=== PATIENT | male | born 1940 | race Caucasian/White ===

== ENCOUNTER 2019-07-24 09:23 | Inpatient (IN) | payer MEDICARE, OTHER ==
[2019-07-24 11:57] LABS: ABSOLUTE LYMPHOCYTES (AUTO) 0.6 10^3/uL (0.5-4.7); ABSOLUTE MONOCYTES (AUTO) 0.5 10^3/uL (0.1-1.4); ABSOLUTE NEUT (AUTO) 7.2 10^3/uL (1.7-8.2); BASOPHILS % (AUTO) 0.5 % (0-2); EOSINOPHILS % (AUTO) 0.6 % (0-6); HEMATOCRIT 44.1 % (37.9-51.0); LYMPHOCYTES % (AUTO) 7.2 % (13-45); MEAN CORPUSCULAR HGB CONC 33.9 g/dL (32.0-36.0); MEAN CORPUSCULAR VOLUME 91 fl (80-97); PLATELET COUNT 148 10^3/uL (150-450); RED BLOOD COUNT 4.83 10^6/uL (4.35-5.55); RED CELL DISTRIBUTION WIDTH 14.2 % (11.5-14.0); SEGMENTED NEUTROPHILS % (AUTO) 85.7 % (42-78); TOTAL CELLS COUNTED % (AUTO) 100 %; WHITE BLOOD COUNT 8.4 10^3/uL (4.0-10.5)
[2019-07-24 12:01] LABS: ALBUMIN 3.7 g/dL (3.5-5.0); ALKALINE PHOSPHATASE 81 U/L (38-126); ANION GAP 11 (5-19); ASPARTATE AMINO TRANSFERASE 20 U/L (17-59); BILIRUBIN,DIRECT 0.2 mg/dL (0.0-0.4); BILIRUBIN,TOTAL 1.1 mg/dL (0.2-1.3); BLOOD UREA NITROGEN 17 mg/dL (7-20); CALCIUM 9.3 mg/dL (8.4-10.2); CARBON DIOXIDE 26 mmol/L (22-30); CHLORIDE 105 mmol/L (98-107); GLUCOSE 99 mg/dL (75-110); POTASSIUM 3.4 mmol/L (3.6-5.0)
[2019-07-24] MEDS ORDERED: NORMAL SALINE IV ONE (12:09)
[2019-07-24] MEDS ORDERED: LEVOFLOXACIN 750 MG/D5W RTU 750 MG/150 ML RTUPB IV ONE (12:09)
[2019-07-24 12:13] LABS: NT PRO BNP 257 pg/mL (<450)
--- NOTE | 2019-07-24 12:14 | ER Document Report ---
Entered by ZACH HARRISON SCRIBE 07/24/19 1119 Acting as scribe for:SEGUNDO GARCIA IV, MD ED Respiratory Problem - General Chief Complaint: Productive Cough Stated Complaint: SHORTNESS OF BREATH Mode of Arrival: Medic Information source: Patient, Emergency Med Personnel Notes: This 79 year old male patient presents to the emergency department today with complaints of a cough beginning yesterday along with associated shortness of breath. Patient states that the cough became more severe with large amounts of sputum production this morning at around 5:00am. EMS reported a room air oxygen saturation of 84% with a respiratory rate of 34 on arrival. Patient states that his cough was mostly dry and non-productive yesterday but since early this morning he states he has coughed up approximately 8 oz. of brown colored sputum with blood streaks. Patient mentions that he has been wearing a "COPD vest" that delivers high frequency chest wall oscillation for the last x3 months and he does not know if that is why he has seen blood streaks in his sputum. Patient denies fevers. - Related Data Allergies/Adverse Reactions: Penicillins Allergy (Verified 07/24/19 10:25) Home Medications: losartin 50 mg daily. crestor [address] 20 mg daily. zocor 40 mg daily. singulair 10 mg. mobic tabs 7.5 mg. sildenafil cotrate 50 mg. B12. ASA 81 mg. docusate sodium 100 mg. claritin Past Medical History - General Information source: Patient - Social History Smoking Status: Former Smoker Cigarette use (# per day): No Chew tobacco use (# tins/day): No Frequency of alcohol use: Rare Drug Abuse: None Occupation: retired Lives with: Spouse/Significant other Family History: Reviewed & Not Pertinent Patient has suicidal ideation: No Patient has homicidal ideation: No - Past Medical History Cardiac Medical History: Reports: Hx Hypercholesterolemia, Hx Hypertension Pulmonary Medical History: Reports: Hx COPD, Hx Pneumonia GI Medical History: Reports: Hx Gastroesophageal Reflux Disease Review of Systems - Review of Systems Constitutional: denies: Fever EENT: No symptoms reported Cardiovascular: No symptoms reported Respiratory: See HPI, Cough, Hemoptysis, Short of breath, Sputum Gastrointestinal: No symptoms reported Genitourinary: No symptoms reported Male Genitourinary: No symptoms reported Musculoskeletal: No symptoms reported Skin: No symptoms reported Hematologic/Lymphatic: No symptoms reported Neurological/Psychological: No symptoms reported -: Yes All other systems reviewed and negative Physical Exam - Vital signs Vitals: Temp Resp BP Pulse Ox 98.1 F 23 H 111/68 94 07/24/19 09:40 07/24/19 09:40 07/24/19 09:40 07/24/19 09:40 - Notes Notes: Physical Exam: General: Alert, appears well. HEENT: Normocephalic. Atraumatic. PERRL. Extraocular movements intact. Oropharynx clear. Neck: Supple. Non-tender. Respiratory: Mild respiratory distress, on 3L via nasal cannula, not on O2 at baseline. Diminished breath sounds bilaterally. Cardiovascular: Regular rate and rhythm. Abdominal: Normal Inspection. Non-tender. No distension. Normal Bowel Sounds. Back: No gross abnormalities. Extremities: Moves all four extremities. Upper extremities: Normal inspection. Normal ROM. Lower extremities: Normal inspection. No edema. Normal ROM. Neurological: Normal cognition. AAOx4. Normal speech. Psychological: Normal affect. Normal Mood. Skin: Warm. Dry. Normal color. Course - Vital Signs Vital signs: Temp Pulse Resp BP Pulse Ox 98.1 F 19 101/66 94 07/24/19 09:40 07/24/19 12:01 07/24/19 12:01 07/24/19 12:09 - Laboratory Result Diagrams: 07/24/19 09:45 07/24/19 09:45 Laboratory results interpreted by me: 07/24/19 07/24/19 07/24/19 09:45 09:45 12:50 RDW 14.2 H Plt Count 148 L Lymph % (Auto) 7.2 L Seg Neutrophils % 85.7 H Carbonic Acid 1.04 L ABG pH 7.46 H ABG pCO2 34.6 L ABG pO2 58.4 L ABG O2 Saturation 91.9 L Potassium 3.4 L - EKG Interpretation by Me Additional EKG results interpreted by me: 07/24/19 16:01 EKG performed on 07/24/2019 at 1219 hrs was interpreted by this MD. Findings: Normal sinus rhythm, rate 81, normal axis, P waves preceding QRS complexes, QRS complexes appear narrow, there are no patterns of ST segment elevation or depression to suggest acute myocardial infarction or ischemia. Impression normal sinus rhythm with nonspecific ST segments. - Consults dr. arias grover Time consulted: 15:58 Reason for consultation: 07/24/19 15:59 COPD EXACERBATION, PNEUMONIA Consulted provider: will come to ER Discharge - Discharge Clinical Impression: Bilateral pneumonia, COPD exacerbation Condition: Good Disposition: ADMITTED OBSERVATION Admitting Provider: Ariel (Hospitalist) Unit Admitted: Telemetry I personally performed the services described in the documentation, reviewed and edited the documentation which was dictated to the scribe in my presence, and it accurately records my words and actions.
[2019-07-24 12:17] LABS: TROPONIN I < 0.012 ng/mL
--- NOTE | 2019-07-24 12:17 | RADIOLOGY REPORT (SQ) ---
EXAM DESCRIPTION: CHEST 2 VIEWS COMPLETED DATE/TIME: 07/24/2019 11:59 am REASON FOR STUDY: cough, blood streaked sputum COMPARISON: None. EXAM PARAMETERS: NUMBER OF VIEWS: two views TECHNIQUE: Digital Frontal and Lateral radiographic views of the chest acquired. RADIATION DOSE: NA LIMITATIONS: none FINDINGS: LUNGS AND PLEURA: Heterogeneous opacity of the lateral right upper lobe and retrocardiac l eft lung base. Small pleural effusions. MEDIASTINUM AND HILAR STRUCTURES: No masses or contour abnormalities. HEART AND VASCULAR STRUCTURES: Cardiomegaly. BONES: No acute findings. HARDWARE: None in the chest. OTHER: No other significant finding. IMPRESSION: 1. Heterogeneous opacity of the lateral right upper lobe and retrocardiac left lung base , concerning for infection. Small pleural effusions. Recommend follow-up radiographs in 6 to 8 week s to ensure complete resolution. 2. Cardiomegaly. TECHNICAL DOCUMENTATION: JOB ID: [id number]- All Rights Reserved Reading location - IP/workstation name: [email or web address]
[2019-07-24 12:33] LABS: INTERNATIONAL RATION (INR) 1.04; PROTHROMBIN TIME 13.6 SEC (11.4-15.4)
[2019-07-24 14:33] LABS: ARTERIAL BLOOD BASE EXCESS 0.7 mmol/L; ARTERIAL BLOOD FIO2 ROOM AIR; ARTERIAL BLOOD H2CO3 1.04 mmol/L (1.05-1.35); ARTERIAL BLOOD O2 SATURATION 91.9 % (94-98); ARTERIAL BLOOD PCO2 34.6 mmHg (35-45); ARTERIAL BLOOD PH 7.46 (7.35-7.45); ARTERIAL BLOOD PO2 58.4 mmHg (80-100); ARTERIAL BLOOD TOTAL CO2 25.1 mmol/L (23-27)
[2019-07-24] MEDS ORDERED: ALBUTEROL SULFATE 0.083% NEB 2.5 MG/3 ML AMPUL NEB PRN (16:37)
[2019-07-24] MEDS ORDERED: MAGNESIUM HYDROXIDE SUSP 30 ML UDCUP PO PRN (16:59)
[2019-07-24] MEDS ORDERED: MAG HYDROX/AL HYDROX/SIMETH SUSP 30 ML UDCUP PO PRN (16:59)
--- NOTE | 2019-07-24 17:31 | PDOC H&P ---
History of Present Illness Admission Date/PCP: 07/24/19 16:49 Patient complains of: Productive cough with shortness of breath History of Present Illness: GABE CHILD is a 79 year old male with a history of hypertension, hyperlipidemia, chronic back pain and COPD. He states that at 5:00 this morning he began coughing. He denied fever or chills. He had 4-5 productive episodes with brown sputum and occasional red specks. For approximately 3 months now he has been wearing a percussion vest for his COPD. He is not on oxygen at home. He did complete a cardiopulmonary rehab program earlier in the fall. He did call EMS. They found him to be hypoxic requiring oxygen supplementation. Chest x-ray reveals infiltrates bilaterally. The patient was given antibiotics and nebulizer treatment and referred to the hospital service for admission Past Medical History Cardiac Medical History: Reports: Hyperlipidema, Hypertension Pulmonary Medical History: Reports: Chronic Obstructive Pulmonary Disease (COPD), Pneumonia EENT Medical History: Reports: Ears - Wears hearing aids Neurological Medical History: Denies: Hemorrhagic CVA, Ischemic CVA, Migraine Endocrine Medical History: Denies: Diabetes Mellitus Type 2, Hypothyroidism Renal/ Medical History: Denies: Chronic Kidney Disease Malignancy Medical History: Reports: None GI Medical History: Reports: Gastroesophageal Reflux Disease Denies: Cirrhosis, Diverticulitis Musculoskeltal Medical History: Reports: Arthritis, Other - Chronic back pain Skin Medical History: Denies: Eczema, Psoriasis Psychiatric Medical History: Denies: Alcohol Dependency, Depression, Substance Abuse, Tobacco Dependency Traumatic Medical History: Reports: None Hematology: Denies: Anemia, Bleeding Tendencies Infectious Medical History: Denies: Clostridium Difficile, Hepatitis B, Hepatitis C, HIV Past Surgical History Past Surgical History: Reports: Orthopedic Surgery - Right rotator cuff repair Social History Information Source: Patient Lives with: Spouse/Significant other Smoking Status: Former Smoker Electronic Cigarette use?: No Frequency of Alcohol Use: None Hx Recreational Drug Use: No Hx Prescription Drug Abuse: No - Advance Directive Resuscitation Status: Full Code Surrogate healthcare decision maker:: The patient does have a living will. His is the designated decision maker. He does not have a copy of the living will on file here at [facility]. Family History Family History: Arthritis, COPD, Malignancy Parental Family History Reviewed: Yes Children Family History Reviewed: Yes Sibling(s) Family History Reviewed.: Yes Medication/Allergy Allergies/Adverse Reactions: Penicillins Allergy (Verified 07/24/19 10:25) Review of Systems Constitutional: ABSENT: chills, fever(s), night sweats Eyes: ABSENT: visual disturbances Ears: PRESENT: hearing changes Nose, Mouth, and Throat: ABSENT: headache(s), mouth pain, sore throat Cardiovascular: ABSENT: chest pain, edema, palpitations Respiratory: PRESENT: cough, dyspnea, sputum. ABSENT: hemoptysis Gastrointestinal: ABSENT: abdominal pain, constipation, diarrhea, nausea, vomiting Genitourinary: PRESENT: nocturia Musculoskeletal: PRESENT: back pain. ABSENT: deformity, joint swelling Integumentary: ABSENT: erythema, pruritus, rash Neurological: ABSENT: abnormal gait, abnormal speech, confusion, memory loss Psychiatric: ABSENT: anxiety, depression, hallucinations Endocrine: ABSENT: cold intolerance, heat intolerance, polydipsia, polyphagia, polyuria Hematologic/Lymphatic: PRESENT: easy bruising - Occasionally. ABSENT: easy bleeding Physical Exam Vital Signs: Temp Pulse Resp BP Pulse Ox 98.1 F 24 H 123/71 95 07/24/19 09:40 07/24/19 16:01 07/24/19 14:01 07/24/19 16:01 Intake & Output 07/23/19 07/24/19 07/25/19 06:59 06:59 06:59 Intake Total 150 Balance 150 Weight 75.6 kg General appearance: PRESENT: cooperative, mild distress - Well-developed 79-year-old patient resting in bed. He has nasal cannula in place. He has a wet cough. He is in mild distress., well-developed, well-nourished. ABSENT: disheveled Head exam: PRESENT: atraumatic, normocephalic Eye exam: PRESENT: conjunctiva pink, EOMI. ABSENT: scleral icterus Ear exam: PRESENT: normal external ear exam. ABSENT: bleeding, drainage Mouth exam: PRESENT: dry mucosa, tongue midline Teeth exam: PRESENT: poor dentation Neck exam: PRESENT: full ROM. ABSENT: JVD, lymphadenopathy, tracheal deviation, tracheostomy Respiratory exam: PRESENT: rhonchi, symmetrical. ABSENT: prolonged expiratory phas, rales, tachypnea, wheezes Cardiovascular exam: PRESENT: RRR, +S1, +S2. ABSENT: diastolic murmur, systolic murmur Pulses: PRESENT: normal dorsalis pedis pul Vascular exam: ABSENT: pallor GI/Abdominal exam: PRESENT: normal bowel sounds, soft. ABSENT: distended, guarding, tenderness Rectal exam: PRESENT: deferred Gentrourinary exam: ABSENT: indwelling catheter Extremities exam: ABSENT: joint swelling, pedal edema Musculoskeletal exam: PRESENT: ambulatory, full ROM, normal inspection Neurological exam: PRESENT: alert, awake, oriented to person, oriented to place, oriented to time, oriented to situation, CN II-XII grossly intact Psychiatric exam: PRESENT: appropriate affect. ABSENT: agitated, anxious Focused psych exam: ABSENT: delusional, restlessness Skin exam: PRESENT: dry, normal color, warm. ABSENT: rash Results Laboratory Results: 07/24/19 09:45 07/24/19 09:45 07/24/19 07/24/19 07/24/19 09:45 09:45 09:45 WBC 8.4 RBC 4.83 Hgb 15.0 Hct 44.1 MCV 91 MCH 31.0 MCHC 33.9 RDW 14.2 H Plt Count 148 L Seg Neutrophils % 85.7 H Carbonic Acid HCO3/H2CO3 Ratio ABG pH ABG pCO2 ABG pO2 ABG HCO3 ABG O2 Saturation ABG Base Excess FiO2 Sodium 141.6 Potassium 3.4 L Chloride 105 Carbon Dioxide 26 Anion Gap 11 BUN 17 Creatinine 0.90 Est GFR ( Amer) > 60 Glucose 99 Lactic Acid 1.8 Calcium 9.3 Total Bilirubin 1.1 AST 20 Alkaline Phosphatase 81 Total Protein 7.0 Albumin 3.7 07/24/19 12:50 WBC RBC Hgb Hct MCV MCH MCHC RDW Plt Count Seg Neutrophils % Carbonic Acid 1.04 L HCO3/H2CO3 Ratio 23:1 ABG pH 7.46 H ABG pCO2 34.6 L ABG pO2 58.4 L ABG HCO3 24.0 ABG O2 Saturation 91.9 L ABG Base Excess 0.7 FiO2 ROOM AIR Sodium Potassium Chloride Carbon Dioxide Anion Gap BUN Creatinine Est GFR ( Amer) Glucose Lactic Acid Calcium Total Bilirubin AST Alkaline Phosphatase Total Protein Albumin 07/24/19 09:45 Troponin I < 0.012 NT-Pro-B Natriuret Pep 257 Impressions: Chest X-Ray 07/24/19 11:41 IMPRESSION: 1. Heterogeneous opacity of the lateral right upper lobe and retrocardiac left lung base, concerning for infection. Small pleural effusions. Recommend follow-up radiographs in 6 to 8 weeks to ensure complete resolution. 2. Cardiomegaly. Assessment and Plan - Diagnosis (1) Bilateral pneumonia Qualifiers: Pneumonia type: due to unspecified organism Lung location: unspecified part of lung Qualified Code(s): J18.9 - Pneumonia, unspecified organism Is this a current diagnosis for this admission?: Yes Plan: 07/24/2019-patient has bilateral infiltrates in the right upper lobe and left lower lobe. He has a cough productive of brown sputum with red specks. With his underlying COPD pneumococcus could certainly be present. Other atypical bacteria are possible. Since he has a productive cough I did order a sputum culture to try and isolate the organism. He will be placed on levofloxacin (penicillin allergy) as well as guaifenesin products. (2) Acute and chronic respiratory failure with hypoxia Is this a current diagnosis for this admission?: Yes Plan: 07/24/2019-the patient was hypoxic in the field and EMS applied supplemental oxygen. We will continue his oxygen supplementation with a goal of weaning him back to room air. After some intervention the patient was placed on room air for short time and an ABG was obtained. The patient had decreased PO2 and saturation of 91% at complete rest. Oxygen saturation has been fluctuating. We will supplement his oxygen with a goal of keeping his saturation between 90 and 94%. (3) COPD exacerbation Is this a current diagnosis for this admission?: Yes Plan: 07/24/2019-exacerbation of COPD secondary to pneumonia. Duo nebs every 6 hours with albuterol available every 3 hours as needed. Budesonide every 12 hours. He does have a percussion vest at home and I have ordered chest physiotherapy every 6 hours with respiratory therapy. No systemic steroids yet. (4) Gastroesophageal reflux Qualifiers: Esophagitis presence: without esophagitis Qualified Code(s): K21.9 - Gastro-esophageal reflux disease without esophagitis Is this a current diagnosis for this admission?: Yes Plan: 07/24/2019-the patient is on omeprazole at home. I will utilize Protonix 20 mg daily while hospitalized. (5) Hypertension Qualifiers: Hypertension type: essential hypertension Qualified Code(s): I10 - Essential (primary) hypertension Is this a current diagnosis for this admission?: Yes Plan: 07/24/2019-losartan is listed as 1 of his medications. I have ordered losartan 50 mg daily. We will monitor his blood pressure and I will confirm dosing when his medications are reconciled by pharmacy. (6) Hyperlipidemia Qualifiers: Hyperlipidemia type: unspecified Qualified Code(s): E78.5 - Hyperlipidemia, unspecified Is this a current diagnosis for this admission?: Yes Plan: 07/24/2019-he was recently changed from simvastatin to Crestor. I will subs titute atorvastatin during his hospitalization. (7) Chronic back pain Qualifiers: Back pain location: back pain in unspecified location Back pain laterality: midline Qualified Code(s): M54.9 - Dorsalgia, unspecified; G89.29 - Other chronic pain Is this a current diagnosis for this admission?: Yes Plan: 07/24/2019-the patient sees Dr. Saini at the pain management clinic. He has received multiple injections. I will continue his Mobic at this time. We will try and avoid narcotic analgesics. (8) Benign prostatic hyperplasia with nocturia Is this a current diagnosis for this admission?: Yes Plan: 07/24/2019-the patient reports that he was having 4-5 episodes of nocturia. He states that his doctor put him on a medicine and this improved. I have started tamsulosin and will continue this unless a different medication is indicated with the pharmacy medication reconciliation. - Plan Summary Summary: 07/24/2019-the patient will be admitted to the hospitalist service. Aggressive nebulizer treatments, oxygen supplementation and antibiotic therapy will be the mainstay of the treatment plan. We will continue to treat his comorbidities as well. - Time Time Spent with patient: 35 or more minutes Medications reviewed and adjusted accordingly: Yes Anticipated discharge: Home - Inpatient Certification Based on my medical assessment, after consideration of the patient's comorbidities, presenting symptoms, or acuity I expect that the services needed warrant INPATIENT care.: Yes I certify that my determination is in accordance with my understanding of Medicare's requirements for reasonable and necessary INPATIENT services [42 CFR 412.3e].: Yes Medical Necessity: Need For IV Fluids, Need for Nebulizer Therapy and Monitoring of Response, Need for IV Antibiotics Post Hospital Care: D/C Spare Fixer Documentation
[2019-07-24] MEDS ORDERED: POTASSIUM CHLORIDE 10 MEQ TABLET.ER PO ONE (17:49)
[2019-07-24] MEDS: TAMSULOSIN HCL 0.4 MG CAP.SR.24H PO SCH (19:51)
[2019-07-24] MEDS: DOCUSATE SODIUM 100 MG CAPSULE PO SCH (19:51)
--- NOTE | 2019-07-24 20:08 | EKG REPORT ---
SEVERITY:- NORMAL ECG - SINUS RHYTHM : Confirmed by: Nora Bautista MD 24-Jul-2019 20:07:02
[2019-07-24] MEDS: IPRATROPIUM/ALBUTEROL 0.5-2.5 MG/3 ML AMPUL NEB SCH (21:18)
[2019-07-24] MEDS: MONTELUKAST SODIUM 10 MG TABLET PO SCH (22:50)
[2019-07-24] MEDS: ATORVASTATIN CALCIUM 40 MG TABLET PO SCH (22:50)
[2019-07-24] MEDS: GUAIFENESIN 600 MG TABLET.SA PO SCH (22:50)
[2019-07-25] MEDS: IPRATROPIUM/ALBUTEROL 0.5-2.5 MG/3 ML AMPUL NEB SCH ×4 (02:36→20:11)
[2019-07-25] MEDS: NORMAL SALINE 1000 ML 1,000 ML IV PRN ×2 (05:55→17:51)
[2019-07-25] MEDS: PANTOPRAZOLE SODIUM 20 MG TABLET.DR PO SCH (05:55)
[2019-07-25 06:13] LABS: MEAN CORPUSCULAR VOLUME 91 fl (80-97)
[2019-07-25 06:20] LABS: ABSOLUTE EOSINOPHILS # (AUTO) 0.1 10^3/uL (0.0-0.6); ABSOLUTE LYMPHOCYTES (AUTO) 1.1 10^3/uL (0.5-4.7); ABSOLUTE MONOCYTES (AUTO) 0.7 10^3/uL (0.1-1.4); ABSOLUTE NEUT (AUTO) 9.3 10^3/uL (1.7-8.2); BASOPHILS % (AUTO) 0.4 % (0-2); EOSINOPHILS % (AUTO) 0.8 % (0-6); HEMATOCRIT 38.1 % (37.9-51.0); LYMPHOCYTES % (AUTO) 9.7 % (13-45); MEAN CORPUSCULAR HEMOGLOBIN 30.6 pg (27.0-33.4); MEAN CORPUSCULAR HGB CONC 33.6 g/dL (32.0-36.0); MONOCYTES % (AUTO) 6.4 % (3-13); PLATELET COUNT 132 10^3/uL (150-450); RED BLOOD COUNT 4.18 10^6/uL (4.35-5.55); RED CELL DISTRIBUTION WIDTH 14.5 % (11.5-14.0); SEGMENTED NEUTROPHILS % (AUTO) 82.7 % (42-78); TOTAL CELLS COUNTED % (AUTO) 100 %; WHITE BLOOD COUNT 11.3 10^3/uL (4.0-10.5)
[2019-07-25 06:21] LABS: HEMOGLOBIN 12.8 g/dL (13.5-17.0)
[2019-07-25 06:31] LABS: ANION GAP 8 (5-19); BLOOD UREA NITROGEN 16 mg/dL (7-20); CALCIUM 8.6 mg/dL (8.4-10.2); CARBON DIOXIDE 23 mmol/L (22-30); CHLORIDE 111 mmol/L (98-107); GLUCOSE 87 mg/dL (75-110)
[2019-07-25] MEDS: GUAIFENESIN 600 MG TABLET.SA PO SCH ×2 (10:03→21:06)
[2019-07-25] MEDS: LOSARTAN POTASSIUM 50 MG TABLET PO SCH (10:03)
[2019-07-25] MEDS: DOCUSATE SODIUM 100 MG CAPSULE PO SCH ×3 (10:03→17:46)
[2019-07-25] MEDS: LORATADINE 10 MG TABLET PO SCH (10:03)
[2019-07-25] MEDS: ASPIRIN 81 MG TABLET, ENT COATED PO SCH (10:03)
[2019-07-25] MEDS: MELOXICAM 7.5 MG TABLET PO SCH (10:04)
[2019-07-25] MEDS: ENOXAPARIN SODIUM INJ 40 MG/0.4 ML DISP.SYRIN SUBCUT SCH (10:04)
[2019-07-25] MEDS: GUAIFENESIN/D-METHORPHAN (200-20 MG) SYRUP 10 ML PO PRN (11:19)
--- NOTE | 2019-07-25 11:33 | PDOC PROGRESS REPORT ---
Subjective Progress Note for:: 07/25/19 Subjective:: Still with persistent productive cough. Now with dark color likely hemolyzed old blood. Breathing is somewhat improved per the patient's report. His reports that the patient feels cold all the time. Lastly, from the coughing he is beginning to get pain along the costal margins. Reason For Visit: PNEUOMONIA,ACUTE ON CHRONIC COPD,HYPERTENSION Physical Exam Vital Signs: Temp Pulse Resp BP Pulse Ox 98.5 F 69 16 115/59 L 97 07/25/19 08:28 07/25/19 08:28 07/25/19 08:28 07/25/19 08:28 07/25/19 09:19 Pulse Oximeter Continuous Start: 07/24/19 16:37 Freq: RTQ4 Status: Active Protocol: Document 07/25/19 09:19 NSM (Rec: 07/25/19 09:21 NSM [id number]) Additional RT Notes Other Rhonchi clears with cough Pulse Oximetry Assessment Oxygen Saturation (92-100) 97 Oxygen Flow Rate (L/min) 2 Oxygen Delivery Method Nasal Cannula Fraction of Inspired Oxygen (FIO2) 28 Equipment Usage Equipment in Use Continuous SpO2 Machine # [id number] Intake & Output 07/24/19 07/25/19 07/26/19 06:59 06:59 06:59 Intake Total 3552 Balance 3552 Weight 78.2 kg General appearance: PRESENT: cooperative, mild distress, well-developed Head exam: PRESENT: atraumatic, normocephalic Ear exam: PRESENT: normal external ear exam. ABSENT: bleeding, drainage Mouth exam: PRESENT: moist, neck supple, tongue midline Respiratory exam: PRESENT: rhonchi - Bilaterally, symmetrical, unlabored. ABSENT: prolonged expiratory phas, rales, tachypnea, wheezes Cardiovascular exam: PRESENT: RRR, +S1, +S2 GI/Abdominal exam: PRESENT: normal bowel sounds, soft. ABSENT: distended, tenderness Rectal exam: PRESENT: deferred Gentrourinary exam: ABSENT: indwelling catheter Extremities exam: ABSENT: pedal edema Musculoskeletal exam: PRESENT: full ROM. ABSENT: normal inspection Neurological exam: PRESENT: alert, awake, oriented to person, oriented to place, oriented to time, oriented to situation, CN II-XII grossly intact Psychiatric exam: PRESENT: appropriate affect. ABSENT: agitated, anxious Skin exam: PRESENT: dry, warm. ABSENT: rash Results Laboratory Results: 07/25/19 06:03 07/25/19 06:03 07/24/19 07/24/19 07/24/19 09:45 09:45 09:45 WBC 8.4 RBC 4.83 Hgb 15.0 Hct 44.1 MCV 91 MCH 31.0 MCHC 33.9 RDW 14.2 H Plt Count 148 L Seg Neutrophils % 85.7 H Carbonic Acid HCO3/H2CO3 Ratio ABG pH ABG pCO2 ABG pO2 ABG HCO3 ABG O2 Saturation ABG Base Excess FiO2 Sodium 141.6 Potassium 3.4 L Chloride 105 Carbon Dioxide 26 Anion Gap 11 BUN 17 Creatinine 0.90 Est GFR ( Amer) > 60 Glucose 99 Lactic Acid 1.8 Calcium 9.3 Total Bilirubin 1.1 AST 20 Alkaline Phosphatase 81 Total Protein 7.0 Albumin 3.7 07/24/19 07/25/19 07/25/19 12:50 06:03 06:03 WBC 11.3 H RBC 4.18 L Hgb 12.8 L D Hct 38.1 MCV 91 MCH 30.6 MCHC 33.6 RDW 14.5 H Plt Count 132 L Seg Neutrophils % 82.7 H Carbonic Acid 1.04 L HCO3/H2CO3 Ratio 23:1 ABG pH 7.46 H ABG pCO2 34.6 L ABG pO2 58.4 L ABG HCO3 24.0 ABG O2 Saturation 91.9 L ABG Base Excess 0.7 FiO2 ROOM AIR Sodium 142.3 Potassium 4.0 Chloride 111 H Carbon Dioxide 23 Anion Gap 8 BUN 16 Creatinine 0.84 Est GFR ( Amer) > 60 Glucose 87 Lactic Acid Calcium 8.6 Total Bilirubin AST Alkaline Phosphatase Total Protein Albumin 07/24/19 09:45 Troponin I < 0.012 NT-Pro-B Natriuret Pep 257 Impressions: Chest X-Ray 07/24/19 11:41 IMPRESSION: 1. Heterogeneous opacity of the lateral right upper lobe and retrocardiac left lung base, concerning for infection. Small pleural effusions. Recommend follow-up radiographs in 6 to 8 weeks to ensure complete resolution. 2. Cardiomegaly. Assessment and Plan - Diagnosis (1) Bilateral pneumonia Qualifiers: Pneumonia type: due to unspecified organism Lung location: unspecified part of lung Qualified Code(s): J18.9 - Pneumonia, unspecified organism Is this a current diagnosis for this admission?: Yes Plan: 07/24/2019-patient has bilateral infiltrates in the right upper lobe and left lower lobe. He has a cough productive of brown sputum with red specks. With his underlying COPD pneumococcus could certainly be present. Other atypical bacteria are possible. Since he has a productive cough I did order a sputum culture to try and isolate the organism. He will be placed on levofloxacin (penicillin allergy) as well as guaifenesin products. 07/25/2019-unfortunately despite the order, no sputum specimen was submitted for culture. At this point, now that the patient has received greater than 24 hours of antibiotic therapy, sputum culture would not be accurate. (2) Acute and chronic respiratory failure with hypoxia Is this a current diagnosis for this admission?: Yes Plan: 07/24/2019-the patient was hypoxic in the field and EMS applied supplemental oxygen. We will continue his oxygen supplementation with a goal of weaning him back to room air. After some intervention the patient was placed on room air for short time and an ABG was obtained. The patient had decreased PO2 and saturation of 91% at complete rest. Oxygen saturation has been fluctuating. We will supplement his oxygen with a goal of keeping his saturation between 90 and 94%. 07/25/2019-continue oxygen supplementation as required. Maintain saturation between 90 and 94%. Taper oxygen as tolerated. Continue current medication regimen. (3) COPD exacerbation Is this a current diagnosis for this admission?: Yes Plan: 07/24/2019-exacerbation of COPD secondary to pneumonia. Duo nebs every 6 hours with albuterol available every 3 hours as needed. Budesonide every 12 hours. He does have a percussion vest at home and I have ordered chest physiotherapy every 6 hours with respiratory therapy. No systemic steroids yet. 07/25/2019-continue inhaler regimen. Consider adding budesonide. Continue chest physiotherapy. (4) Gastroesophageal reflux Qualifiers: Esophagitis presence: without esophagitis Qualified Code(s): K21.9 - Gastro-esophageal reflux disease without esophagitis Is this a current diagnosis for this admission?: Yes Plan: 07/24/2019-the patient is on omeprazole at home. I will utilize Protonix 20 mg daily while hospitalized. 07/25/2019-continue Protonix (5) Hypertension Qualifiers: Hypertension type: essential hypertension Qualified Code(s): I10 - Esse ntial (primary) hypertension Is this a current diagnosis for this admission?: Yes Plan: 07/24/2019-losartan is listed as 1 of his medications. I have ordered losartan 50 mg daily. We will monitor his blood pressure and I will confirm dosing when his medications are reconciled by pharmacy. 07/25/2019-continue current regimen. (6) Hyperlipidemia Qualifiers: Hyperlipidemia type: unspecified Qualified Code(s): E78.5 - Hyperlipidemia, unspecified Is this a current diagnosis for this admission?: Yes Plan: 07/24/2019-he was recently changed from simvastatin to Crestor. I will substitute atorvastatin during his hospitalization. 07/25/2019-continue atorvastatin (7) Chronic back pain Qualifiers: Back pain location: back pain in unspecified location Back pain laterality: midline Qualified Code(s): M54.9 - Dorsalgia, unspecified; G89.29 - Other chronic pain Is this a current diagnosis for this admission?: Yes Plan: 07/24/2019-the patient sees Dr. Saini at the pain management clinic. He has received multiple injections. I will continue his Mobic at this time. We will try and avoid narcotic analgesics. 07/25/2019-continue anti-inflammatory medication (8) Benign prostatic hyperplasia with nocturia Is this a current diagnosis for this admission?: Yes Plan: 07/24/2019-the patient reports that he was having 4-5 episodes of nocturia. He states that his doctor put him on a medicine and this improved. I have started tamsulosin and will continue this unless a different medication is indicated with the pharmacy medication reconciliation. 07/25/2019-continue Flomax (9) Cold intolerance Is this a current diagnosis for this admission?: Yes Plan: 07/25/2019-the patient's reports that the patient complains of always feeling cold. This includes occasional episodes of chills. I will check a TSH level as an initial investigation. - Plan Summary Summary: 07/24/2019-the patient will be admitted to the hospitalist service. Aggressive nebulizer treatments, oxygen supplementation and antibiotic therapy will be the mainstay of the treatment plan. We will continue to treat his comorbidities as well. - Time Time Spent with patient: 15-24 minutes Medications reviewed and adjusted accordingly: Yes Anticipated discharge: Home
[2019-07-25] MEDS: LEVOFLOXACIN 750 MG/D5W RTU 750 MG/150 ML RTUPB IV SCH (13:15)
[2019-07-25] MEDS: TAMSULOSIN HCL 0.4 MG CAP.SR.24H PO SCH (17:51)
[2019-07-25] MEDS: ATORVASTATIN CALCIUM 40 MG TABLET PO SCH (21:06)
[2019-07-25] MEDS: MONTELUKAST SODIUM 10 MG TABLET PO SCH (21:06)
[2019-07-26] MEDS: IPRATROPIUM/ALBUTEROL 0.5-2.5 MG/3 ML AMPUL NEB SCH ×4 (02:22→19:56)
[2019-07-26] MEDS: NORMAL SALINE 1000 ML 1,000 ML IV PRN ×2 (03:49→13:54)
[2019-07-26] MEDS: PANTOPRAZOLE SODIUM 20 MG TABLET.DR PO SCH (06:38)
[2019-07-26] MEDS: GUAIFENESIN/D-METHORPHAN (200-20 MG) SYRUP 10 ML PO PRN (06:39)
[2019-07-26 06:51] LABS: ABSOLUTE LYMPHOCYTES (AUTO) 0.9 10^3/uL (0.5-4.7); ABSOLUTE MONOCYTES (AUTO) 0.8 10^3/uL (0.1-1.4); ABSOLUTE NEUT (AUTO) 8.7 10^3/uL (1.7-8.2); BASOPHILS % (AUTO) 0.3 % (0-2); EOSINOPHILS % (AUTO) 0.2 % (0-6); HEMATOCRIT 35.7 % (37.9-51.0); HEMOGLOBIN 12.5 g/dL (13.5-17.0); LYMPHOCYTES % (AUTO) 8.5 % (13-45); MEAN CORPUSCULAR HEMOGLOBIN 31.5 pg (27.0-33.4); MEAN CORPUSCULAR VOLUME 90 fl (80-97); MONOCYTES % (AUTO) 7.7 % (3-13); PLATELET COUNT 125 10^3/uL (150-450); RED BLOOD COUNT 3.96 10^6/uL (4.35-5.55); RED CELL DISTRIBUTION WIDTH 14.2 % (11.5-14.0); SEGMENTED NEUTROPHILS % (AUTO) 83.3 % (42-78); TOTAL CELLS COUNTED % (AUTO) 100 %; WHITE BLOOD COUNT 10.4 10^3/uL (4.0-10.5)
[2019-07-26] MEDS: DOCUSATE SODIUM 100 MG CAPSULE PO SCH ×2 (10:32→18:15)
[2019-07-26] MEDS: LOSARTAN POTASSIUM 50 MG TABLET PO SCH (10:33)
[2019-07-26] MEDS: GUAIFENESIN 600 MG TABLET.SA PO SCH ×2 (10:34→21:30)
[2019-07-26] MEDS: LORATADINE 10 MG TABLET PO SCH (10:34)
[2019-07-26] MEDS: ASPIRIN 81 MG TABLET, ENT COATED PO SCH (10:34)
[2019-07-26] MEDS: MELOXICAM 7.5 MG TABLET PO SCH (10:36)
[2019-07-26] MEDS: ENOXAPARIN SODIUM INJ 40 MG/0.4 ML DISP.SYRIN SUBCUT SCH (10:36)
[2019-07-26] MEDS ORDERED: KETOROLAC TROMETHAMINE INJ/PF 30 MG/1 ML SDV IV PRN (12:15)
--- NOTE | 2019-07-26 12:20 | PDOC PROGRESS REPORT ---
Subjective Progress Note for:: 07/26/19 Subjective:: Patient is coughing less but his ribs still hurt. During this encounter he coughed up thick dark mucus which is likely old blood. He still has significant subcostal pain from coughing. He is down to 1 L nasal cannula but feels very weak. Reason For Visit: PNEUOMONIA,ACUTE ON CHRONIC COPD,HYPERTENSION Physical Exam Vital Signs: Temp Pulse Resp BP Pulse Ox 99.2 F 81 18 119/49 L 98 07/26/19 08:00 07/26/19 08:00 07/26/19 08:00 07/26/19 08:00 07/26/19 08:39 Pulse Oximeter Continuous Start: 07/24/19 16:37 Freq: RTQ4 Status: Active Protocol: Document 07/26/19 08:39 NSM (Rec: 07/26/19 08:40 NSM [id number]) Pulse Oximetry Assessment Oxygen Saturation (92-100) 98 Oxygen Flow Rate (L/min) 1 Oxygen Delivery Method Nasal Cannula Fraction of Inspired Oxygen (FIO2) 24 Equipment Usage Equipment in Use Continuous SpO2 Machine # [id number] Intake & Output 07/25/19 07/26/19 07/27/19 06:59 06:59 06:59 Intake Total 3552 3227 Output Total 1500 Balance 3552 1727 Weight 78.2 kg 77.8 kg General appearance: PRESENT: cooperative, mild distress, well-developed, well- nourished Head exam: PRESENT: atraumatic Ear exam: PRESENT: normal external ear exam. ABSENT: bleeding, drainage Respiratory exam: PRESENT: rhonchi - Improved, symmetrical. ABSENT: accessory muscle use, rales, wheezes Cardiovascular exam: PRESENT: RRR, +S1, +S2 GI/Abdominal exam: PRESENT: normal bowel sounds, soft, tenderness - Along the costal margin bilaterally. ABSENT: distended Rectal exam: PRESENT: deferred Extremities exam: ABSENT: pedal edema Musculoskeletal exam: PRESENT: normal inspection Neurological exam: PRESENT: alert, awake, oriented to person, oriented to place, oriented to time, oriented to situation, CN II-XII grossly intact Psychiatric exam: PRESENT: agitated, anxious, flat affect Results Laboratory Results: 07/26/19 06:40 07/25/19 06:03 07/26/19 07/26/19 06:40 06:40 WBC 10.4 RBC 3.96 L Hgb 12.5 L Hct 35.7 L MCV 90 MCH 31.5 MCHC 35.0 RDW 14.2 H Plt Count 125 L Seg Neutrophils % 83.3 H TSH 1.79 07/24/19 09:45 Troponin I < 0.012 NT-Pro-B Natriuret Pep 257 Impressions: Chest X-Ray 07/24/19 11:41 IMPRESSION: 1. Heterogeneous opacity of the lateral right upper lobe and retro cardiac left lung base, concerning for infection. Small pleural effusions. Recommend follow-up radiographs in 6 to 8 weeks to ensure complete resolution. 2. Cardiomegaly. Assessment and Plan - Diagnosis (1) Bilateral pneumonia Qualifiers: Pneumonia type: due to unspecified organism Lung location: unspecified part of lung Qualified Code(s): J18.9 - Pneumonia, unspecified organism Is this a current diagnosis for this admission?: Yes Plan: 07/24/2019-patient has bilateral infiltrates in the right upper lobe and left lower lobe. He has a cough productive of brown sputum with red specks. With h is underlying COPD pneumococcus could certainly be present. Other atypical bacteria are possible. Since he has a productive cough I did order a sputum culture to try and isolate the organism. He will be placed on levofloxacin (penicillin allergy) as well as guaifenesin products. 07/25/2019-unfortunately despite the order, no sputum specimen was submitted for culture. At this point, now that the patient has received greater than 24 hours of antibiotic therapy, sputum culture would not be accurate. 07/26/2019-the patient appears to be responding to the antibiotic therapy. We will continue the levofloxacin. This should provide adequate coverage for bacteria associated with community-acquired pneumonia in a patient with underlying COPD. The patient is still coughing up sputum with dark black discoloration consistent with metabolized blood cells. No bright red blood observed. (2) Acute and chronic respiratory failure with hypoxia Is this a current diagnosis for this admission?: Yes Plan: 07/24/2019-the patient was hypoxic in the field and EMS applied supplemental oxygen. We will continue his oxygen supplementation with a goal of weaning him back to room air. After some intervention the patient was placed on room air for short time and an ABG was obtained. The patient had decreased PO2 and saturation of 91% at complete rest. Oxygen saturation has been fluctuating. We will supplement his oxygen with a goal of keeping his saturation between 90 and 94%. 07/25/2019-continue oxygen supplementation as required. Maintain saturation between 90 and 94%. Taper oxygen as tolerated. Continue current medication regimen. 07/26/2019-continue treatment of pneumonia and aggressive nebulizer therapy. The patient is now down to 1 L nasal cannula. The goal is to taper the patient to no supplemental oxygen. (3) COPD exacerbation Is this a current diagnosis for this admission?: Yes Plan: 07/24/2019-exacerbation of COPD secondary to pneumonia. Duo nebs every 6 hours with albuterol available every 3 hours as needed. Budesonide every 12 hours. He does have a percussion vest at home and I have ordered chest physiotherapy every 6 hours with respiratory therapy. No systemic steroids yet. 07/25/2019-continue inhaler regimen. Consider adding budesonide. Continue chest physiotherapy. 07/26/2019-continue inhalers as noted above. Continue chest percussion physiotherapy. I have added budesonide. Consider Mucomyst if there is concern for inspissated secretions. (4) Gastroesophageal reflux Qualifiers: Esophagitis presence: without esophagitis Qualified Code(s): K21.9 - Gastro-esophageal reflux disease without esophagitis Is this a current diagnosis for this admission?: Yes Plan: 07/24/2019-the patient is on omeprazole at home. I will utilize Protonix 20 mg daily while hospitalized. 07/25/2019-continue Protonix 07/26/2019-continue current management (5) Hypertension Qualifiers: Hypertension type: essential hypertension Qualified Code(s): I10 - Essential (primary) hypertension Is this a current diagnosis for this admission?: Yes Plan: 07/24/2019-losartan is listed as 1 of his medications. I have ordered losartan 50 mg daily. We will monitor his blood pressure and I will confirm dosing when his medications are reconciled by pharmacy. 07/25/2019-continue current regimen. 07/26/2019-blood pressures are reasonably controlled on current regimen. He does have occasional spikes. This could be related to his musculoskeletal discomfort from coughing. (6) Hyperlipidemia Qualifiers: Hyperlipidemia type: unspecified Qualified Code(s): E78.5 - Hyperlipidemia, unspecified Is this a current diagnosis for this admission?: Yes Plan: 07/24/2019-he was recently changed from simvastatin to Crestor. I will substitute atorvastatin during his hospitalization. 07/25/2019-continue atorvastatin (7) Chronic back pain Qualifiers: Back pain location: back pain in unspecified location Back pain laterality: midline Qualified Code(s): M54.9 - Dorsalgia, unspecified; G89.29 - Other chronic pain Is this a current diagnosis for this admission?: Yes Plan: 07/24/2019-the patient sees Dr. Saini at the pain management clinic. He has received multiple injections. I will continue his Mobic at this time. We will try and avoid narcotic analgesics. 07/25/2019-continue anti-inflammatory medication 07/26/2019-he is currently on meloxicam 7.5 mg daily. I will add a trial of as needed Toradol 30 mg IV every 6 hours as needed. We will monitor vital signs closely. If we perceive an adverse effect on his blood pressure or cardiac status I will discontinue the medication. If it is effective then I will discontinue the Mobic and utilize the Toradol alone. (8) Benign prostatic hyperplasia with nocturia Is this a current diagnosis for this admission?: Yes Plan: 07/24/2019-the patient reports that he was having 4-5 episodes of nocturia. He states that his doctor put him on a medicine and this improved. I have started tamsulosin and will continue this unless a different medication is indicated with the pharmacy medication reconciliation. 07/25/2019-continue Flomax 07/26/2019-continues Flomax 0.4 mg at bedtime. He still complains of some urgency and it is difficult to get to the bathroom without leaking some urine. Consider increasing the Flomax to 0.8 mg. (9) Cold intolerance Is this a current diagnosis for this admission?: Yes Plan: 07/25/2019-the patient's reports that the patient complains of always feeling cold. This includes occasional episodes of chills. I will check a TSH level as an initial investigation. 07/26/2019-as noted above there is a question of cold intolerance. I did check a TSH level. This was normal. That ongoing sense of feeling cold may more likely be related to his chronic illness disease. (10) Physical deconditioning Is this a current diagnosis for this admission?: Yes Plan: 07/26/2019-the patient's commented as did the patient on how weak he feels. I explained that with a significant infection this is not uncommon. Because of his underlying comorbidities I will ask physical therapy to assess the patient. We will assess his gait instability. If physical therapy agrees and the patient may be able to walk with his , possibly utilizing a walker, during the day. (11) Cough with hemoptysis Is this a current diagnosis for this admission?: Yes Plan: 07/26/2019-as noted on admission the patient was seeing some red flecks in his sputum. Now he is coughing up blackish sputum. I explained to the patient and his that this is likely old blood mixed with mucus. There is no evidence of bright red blood. He did cough up about 2 teaspoons worth of mucus during the encounter. It is definitely black in color and most likely old blood. Hemoglobin is stable. - Plan Summary Summary: 07/24/2019-the patient will be admitted to the hospitalist service. Aggressive nebulizer treatments, oxygen supplementation and antibiotic therapy will be the mainstay of the treatment plan. We will continue to treat his comorbidities as well. - Time Time Spent with patient: 15-24 minutes Medications reviewed and adjusted accordingly: Yes Anticipated discharge: Home Within: within 72 hours
[2019-07-26] MEDS: LEVOFLOXACIN 750 MG/D5W RTU 750 MG/150 ML RTUPB IV SCH (13:54)
[2019-07-26] MEDS: TAMSULOSIN HCL 0.4 MG CAP.SR.24H PO SCH (18:17)
[2019-07-26] MEDS: BUDESONIDE NEB 0.5 MG/2 ML AMPUL NEB SCH (19:56)
[2019-07-26] MEDS: ATORVASTATIN CALCIUM 40 MG TABLET PO SCH (21:30)
[2019-07-26] MEDS: MONTELUKAST SODIUM 10 MG TABLET PO SCH (21:30)
[2019-07-27] MEDS: IPRATROPIUM/ALBUTEROL 0.5-2.5 MG/3 ML AMPUL NEB SCH ×4 (02:39→19:33)
[2019-07-27] MEDS: PANTOPRAZOLE SODIUM 20 MG TABLET.DR PO SCH (06:00)
[2019-07-27] MEDS: ACETAMINOPHEN 325 MG TABLET PO PRN (06:02)
[2019-07-27 06:16] LABS: HEMATOCRIT 34.8 % (37.9-51.0); HEMOGLOBIN 11.8 g/dL (13.5-17.0); MEAN CORPUSCULAR VOLUME 91 fl (80-97); PLATELET COUNT 147 10^3/uL (150-450); RED BLOOD COUNT 3.82 10^6/uL (4.35-5.55); RED CELL DISTRIBUTION WIDTH 14.4 % (11.5-14.0); WHITE BLOOD COUNT 10.3 10^3/uL (4.0-10.5)
[2019-07-27 06:51] LABS: ANION GAP 11 (5-19); BLOOD UREA NITROGEN 9 mg/dL (7-20); CALCIUM 8.4 mg/dL (8.4-10.2); CARBON DIOXIDE 25 mmol/L (22-30); CHLORIDE 104 mmol/L (98-107); GLUCOSE 82 mg/dL (75-110); POTASSIUM 3.7 mmol/L (3.6-5.0)
[2019-07-27] MEDS: BUDESONIDE NEB 0.5 MG/2 ML AMPUL NEB SCH ×2 (08:30→19:33)
--- NOTE | 2019-07-27 09:35 | RADIOLOGY REPORT (SQ) ---
EXAM DESCRIPTION: CHEST 2 VIEWS COMPLETED DATE/TIME: 07/27/2019 9:22 am REASON FOR STUDY: Pneumonia COMPARISON: 07/24/2019 TECHNIQUE: Frontal and lateral radiographic views of the chest acquired. NUMBER OF VIEWS: Two view. LIMITATIONS: None. FINDINGS: LUNGS AND PLEURA: Similar appearance of relatively extensive right upper lobe pneumonia. Mild left lower lobe volume loss and potential trace pleural fluid. No pneumothorax. No new areas o f infiltrate. MEDIASTINUM AND HILAR STRUCTURES: No masses or contour abnormalities. HEART AND VASCULAR STRUCTURES: Stable heart size. BONES: No acute findings. HARDWARE: None in the chest. OTHER: No other significant finding. IMPRESSION: Stable chest. Includes unchanged right upper lobe pneumonia. TECHNICAL DOCUMENTATION: JOB ID: [id number] [employer]- All Rights Reserved Reading location - IP/workstation name: [email or web address]
[2019-07-27] MEDS: MELOXICAM 7.5 MG TABLET PO SCH (10:50)
[2019-07-27] MEDS: LOSARTAN POTASSIUM 50 MG TABLET PO SCH (10:50)
[2019-07-27] MEDS: ASPIRIN 81 MG TABLET, ENT COATED PO SCH (10:50)
[2019-07-27] MEDS: LORATADINE 10 MG TABLET PO SCH (10:50)
[2019-07-27] MEDS: GUAIFENESIN 600 MG TABLET.SA PO SCH ×2 (10:50→22:27)
[2019-07-27] MEDS: DOCUSATE SODIUM 100 MG CAPSULE PO SCH ×2 (10:50→18:42)
[2019-07-27] MEDS: ENOXAPARIN SODIUM INJ 40 MG/0.4 ML DISP.SYRIN SUBCUT SCH (10:51)
--- NOTE | 2019-07-27 13:00 | PDOC PROGRESS REPORT ---
Subjective Progress Note for:: 07/27/19 Subjective:: The patient is actually sitting up in the chair today. He still reports coughing up dark mucus. He reports that the flutter valve and chest physiotherapy are helping. Reason For Visit: PNEUOMONIA,ACUTE ON CHRONIC COPD,HYPERTENSION Physical Exam Vital Signs: Temp Pulse Resp BP Pulse Ox 98.6 F 72 18 146/71 H 98 07/27/19 08:00 07/27/19 08:30 07/27/19 08:30 07/27/19 08:00 07/27/19 08:30 Pulse Oximeter Continuous Start: 07/24/19 16:37 Freq: RTQ4 Status: Active Protocol: Document 07/27/19 08:30 LDA (Rec: 07/27/19 09:48 LDA [email or web address]) Pulse Oximetry Assessment Oxygen Saturation (92-100) 98 Oxygen Flow Rate (L/min) 1 Oxygen Delivery Method Nasal Cannula Fraction of Inspired Oxygen (FIO2) 24 Equipment Usage Equipment in Use Continuous Pulse Oximeter 24 Hour Charge Charge Now Continuous SpO2 Machine # [id number] Intake & Output 07/26/19 07/27/19 07/28/19 06:59 06:59 06:59 Intake Total 3227 1720 Output Total 1500 1675 Balance 1727 45 Weight 77.8 kg 76.8 kg General appearance: PRESENT: no acute distress, cooperative, well-developed, well-nourished Head exam: PRESENT: atraumatic, normocephalic Ear exam: PRESENT: normal external ear exam. ABSENT: bleeding, drainage Respiratory exam: PRESENT: rhonchi - Still significant on the right. Slightly decreased on the left., symmetrical, unlabored, other - Nasal cannula in place. Still producing darkly colored mucus. ABSENT: accessory muscle use, rales, tachypnea, wheezes GI/Abdominal exam: PRESENT: normal bowel sounds, soft. ABSENT: distended, tenderness Rectal exam: PRESENT: deferred Gentrourinary exam: ABSENT: indwelling catheter Extremities exam: ABSENT: pedal edema Musculoskeletal exam: PRESENT: ambulatory, full ROM, normal inspection. ABSENT: deformity Neurological exam: PRESENT: alert, awake, oriented to person, oriented to place, oriented to time, oriented to situation, CN II-XII grossly intact. ABSENT: motor sensory deficit Psychiatric exam: PRESENT: appropriate affect. ABSENT: agitated, anxious Results Laboratory Results: 07/27/19 05:37 07/27/19 05:37 07/27/19 07/27/19 05:37 05:37 WBC 10.3 RBC 3.82 L Hgb 11.8 L Hct 34.8 L MCV 91 MCH 31.0 MCHC 34.0 RDW 14.4 H Plt Count 147 L Sodium 140.1 Potassium 3.7 Chloride 104 Carbon Dioxide 25 Anion Gap 11 BUN 9 Creatinine 0.89 Est GFR ( Amer) > 60 Glucose 82 Calcium 8.4 07/24/19 09:45 Troponin I < 0.012 NT-Pro-B Natriuret Pep 257 Impressions: Chest X-Ray 07/27/19 09:00 IMPRESSION: Stable chest. Includes unchanged right upper lobe pneumonia. Assessment and Plan - Diagnosis (1) Bilateral pneumonia Qualifiers: Pneumonia type: due to unspecified organism Lung location: unspecified part of lung Qualified Code(s): J18.9 - Pneumonia, unspecified organism Is this a current diagnosis for this admission?: Yes Plan: 07/24/2019-patient has bilateral infiltrates in the right upper lobe and left lower lobe. He has a cough productive of brown sputum with red specks. With his underlying COPD pneumococcus could certainly be present. Other atypical bacteria are possible. Since he has a productive cough I did order a sputum culture to try and isolate the organism. He will be placed on levofloxacin (penicillin allergy) as well as guaifenesin products. 07/25/2019-unfortunately despite the order, no sputum specimen was submitted for culture. At this point, now that the patient has received greater than 24 hours of antibiotic therapy, sputum culture would not be accurate. 07/26/2019-the patient appears to be responding to the antibiotic therapy. We will continue the levofloxacin. This should provide adequate coverage for bacteria associated with community-acquired pneumonia in a patient with underlying COPD. The patient is still coughing up sputum with dark black discoloration consistent with metabolized blood cells. No bright red blood observed. 07/27/2019-still with episodes of black mucus. Chest physiotherapy should help. Continue antibiotics. (2) Acute and chronic respiratory failure with hypoxia Is this a current diagnosis for this admission?: Yes Plan: 07/24/2019-the patient was hypoxic in the field and EMS applied supplemental oxygen. We will continue his oxygen supplementation with a goal of weaning him back to room air. After some intervention the patient was placed on room air for short time and an ABG was obtained. The patient had decreased PO2 and saturation of 91% at complete rest. Oxygen saturation has been fluctuating. We will supplement his oxygen with a goal of keeping his saturation between 90 and 94%. 07/25/2019-continue oxygen supplementation as required. Maintain saturation between 90 and 94%. Taper oxygen as tolerated. Continue current medication regimen. 07/26/2019-continue treatment of pneumonia and aggressive nebulizer therapy. The patient is now down to 1 L nasal cannula. The goal is to taper the patient to no supplemental oxygen. 07/27/2019-continue inhaler regimen. Continue to wean from oxygen. (3) COPD exacerbation Is this a current diagnosis for this admission?: Yes Plan: 07/24/2019-exacerbation of COPD secondary to pneumonia. Duo nebs every 6 hours with albuterol available every 3 hours as needed. Budesonide every 12 hours. He does have a percussion vest at home and I have ordered chest physiotherapy every 6 hours with respiratory therapy. No systemic steroids yet. 07/25/2019-continue inhaler regimen. Consider adding budesonide. Continue chest physiotherapy. 07/26/2019-continue inhalers as noted above. Continue chest percussion physiotherapy. I have added budesonide. Consider Mucomyst if there is concern for inspissated secretions. 07/27/2019-secondary to pneumonia. Continue current treatment plan. (4) Gastroesophageal reflux Qualifiers: Esophagitis presence: without esophagitis Qualified Code(s): K21.9 - Gastro-esophageal reflux disease without esophagitis Is this a current diagnosis for this admission?: Yes Plan: 07/24/2019-the patient is on omeprazole at home. I will utilize Protonix 20 mg daily while hospitalized. 07/25/2019-continue Protonix 07/26/2019-continue current management 07/27/2019-as above (5) Hypertension Qualifiers: Hypertension type: essential hypertension Qualified Code(s): I10 - Essential (primary) hypertension Is this a current diagnosis for this admission?: Yes Plan: 07/24/2019-losartan is listed as 1 of his medications. I have ordered losartan 50 mg daily. We will monitor his blood pressure and I will confirm dosing when his medications are reconciled by pharmacy. 07/25/2019-continue current regimen. 07/26/2019-blood pressures are reasonably controlled on current regimen. He does have occasional spikes. This could be related to his musculoskeletal discomfort from coughing. 07/27/2019-consider adding low-dose hydrochlorothiazide. Blood pressure still fluctuates. (6) Hyperlipidemia Qualifiers: Hyperlipidemia type: unspecified Qualified Code(s): E78.5 - Hyperlipidemia, unspecified Is this a current diagnosis for this admission?: Yes Plan: 07/24/2019-he was recently changed from simvastatin to Crestor. I will sub stitute atorvastatin during his hospitalization. 07/25/2019-continue atorvastatin (7) Chronic back pain Qualifiers: Back pain location: back pain in unspecified location Back pain laterality: midline Qualified Code(s): M54.9 - Dorsalgia, unspecified; G89.29 - Other chronic pain Is this a current diagnosis for this admission?: Yes Plan: 07/24/2019-the patient sees Dr. Saini at the pain management clinic. He has received multiple injections. I will continue his Mobic at this time. We will try and avoid narcotic analgesics. 07/25/2019-continue anti-inflammatory medication 07/26/2019-he is currently on meloxicam 7.5 mg daily. I will add a trial of as needed Toradol 30 mg IV every 6 hours as needed. We will monitor vital signs closely. If we perceive an adverse effect on his blood pressure or cardiac status I will discontinue the medication. If it is effective then I will discontinue the Mobic and utilize the Toradol alone. 07/27/2019-somewhat effective. Blood pressure may be trending up. May need to discontinue. (8) Benign prostatic hyperplasia with nocturia Is this a current diagnosis for this admission?: Yes Plan: 07/24/2019-the patient reports that he was having 4-5 episodes of nocturia. He states that his doctor put him on a medicine and this improved. I have started tamsulosin and will continue this unless a different medication is indicated with the pharmacy medication reconciliation. 07/25/2019-continue Flomax 07/26/2019-continues Flomax 0.4 mg at bedtime. He still complains of some urgency and it is difficult to get to the bathroom without leaking some urine. Consider increasing the Flomax to 0.8 mg. 07/27/2019-continue 0.4 mg Flomax at this time. (9) Cold intolerance Is this a current diagnosis for this admission?: Yes Plan: 07/25/2019-the patient's reports that the patient complains of always feeling cold. This includes occasional episodes of chills. I will check a TSH level as an initial investigation. 07/26/2019-as noted above there is a question of cold intolerance. I did check a TSH level. This was normal. That ongoing sense of feeling cold may more likely be related to his chronic illness disease. 07/27/2019- reports this is a symptom however the patient's thyroid function is normal. Likely symptomatic but not pathologic (10) Physical deconditioning Is this a current diagnosis for this admission?: Yes Plan: 07/26/2019-the patient's commented as did the patient on how weak he feels. I explained that with a significant infection this is not uncommon. Because of his underlying comorbidities I will ask physical therapy to assess the patient. We will assess his gait instability. If physical therapy agrees and the patient may be able to walk with his , possibly utilizing a walker, during the day. 07/27/2019-we will have physical therapy assess. Likely just transient from current illness. (11) Cough with hemoptysis Is this a current diagnosis for this admission?: Yes Plan: 07/26/2019-as noted on admission the patient was seeing some red flecks in his sputum. Now he is coughing up blackish sputum. I explained to the patient and his that this is likely old blood mixed with mucus. There is no evidence of bright red blood. He did cough up about 2 teaspoons worth of mucus during the encounter. It is definitely black in color and most likely old blood. He moglobin is stable. 07/27/2019-still with black mucus but no bright red blood. - Plan Summary Summary: 07/24/2019-the patient will be admitted to the hospitalist service. Aggressive nebulizer treatments, oxygen supplementation and antibiotic therapy will be the mainstay of the treatment plan. We will continue to treat his comorbidities as well. - Time Time Spent with patient: 15-24 minutes Medications reviewed and adjusted accordingly: Yes Anticipated discharge: Home Within: within 48 hours
[2019-07-27] MEDS: LEVOFLOXACIN 750 MG/D5W RTU 750 MG/150 ML RTUPB IV SCH (14:14)
[2019-07-27] MEDS: TAMSULOSIN HCL 0.4 MG CAP.SR.24H PO SCH (18:42)
[2019-07-27] MEDS: NORMAL SALINE 1000 ML 1,000 ML IV PRN (18:44)
[2019-07-27] MEDS: ATORVASTATIN CALCIUM 40 MG TABLET PO SCH (22:27)
[2019-07-27] MEDS: MONTELUKAST SODIUM 10 MG TABLET PO SCH (22:27)
[2019-07-28] MEDS: ACETAMINOPHEN 325 MG TABLET PO PRN ×3 (01:20→19:25)
[2019-07-28] MEDS: IPRATROPIUM/ALBUTEROL 0.5-2.5 MG/3 ML AMPUL NEB SCH ×4 (02:59→21:27)
[2019-07-28] MEDS: PANTOPRAZOLE SODIUM 20 MG TABLET.DR PO SCH (05:38)
[2019-07-28] MEDS: BUDESONIDE NEB 0.5 MG/2 ML AMPUL NEB SCH ×2 (08:41→21:27)
[2019-07-28] MEDS: LORATADINE 10 MG TABLET PO SCH (10:40)
[2019-07-28] MEDS: GUAIFENESIN 600 MG TABLET.SA PO SCH ×2 (10:40→21:13)
[2019-07-28] MEDS: ASPIRIN 81 MG TABLET, ENT COATED PO SCH (10:40)
[2019-07-28] MEDS: DOCUSATE SODIUM 100 MG CAPSULE PO SCH ×2 (10:40→17:37)
[2019-07-28] MEDS: LOSARTAN POTASSIUM 50 MG TABLET PO SCH (10:40)
[2019-07-28] MEDS: ENOXAPARIN SODIUM INJ 40 MG/0.4 ML DISP.SYRIN SUBCUT SCH (10:40)
[2019-07-28] MEDS: MELOXICAM 7.5 MG TABLET PO SCH (12:50)
[2019-07-28] MEDS: LEVOFLOXACIN 750 MG/D5W RTU 750 MG/150 ML RTUPB IV SCH (12:50)
--- NOTE | 2019-07-28 15:54 | PDOC PROGRESS REPORT ---
Subjective Progress Note for:: 07/28/19 Subjective:: The patient is sitting in the chair. Nasal cannula is off. At rest oxygen saturation is 94 to 95%. His is sitting on the bed. He still has a somewhat wet cough and his reports that he has coughed up dark and sputum approximately 1 to 2 teaspoons several times today. Reason For Visit: PNEUOMONIA,ACUTE ON CHRONIC COPD,HYPERTENSION Physical Exam Vital Signs: Temp Pulse Resp BP Pulse Ox 97.8 F 75 17 108/56 L 97 07/28/19 12:00 07/28/19 13:51 07/28/19 13:51 07/28/19 12:00 07/28/19 15:15 Pulse Oximeter Continuous Start: 07/24/19 16:37 Freq: RTQ4 Status: Active Protocol: Document 07/28/19 15:15 LDA (Rec: 07/28/19 15:15 LDA [id number]) Pulse Oximetry Assessment Oxygen Saturation (92-100) 97 Oxygen Delivery Method Room Air Fraction of Inspired Oxygen (FIO2) 21 Equipment Usage Equipment in Use Continuous SpO2 Machine # 10 Intake & Output 07/27/19 07/28/19 07/29/19 06:59 06:59 06:59 Intake Total 2870 1170 240 Output Total 1675 600 Balance 1195 1170 -360 Weight 76.8 kg 78.6 kg General appearance: PRESENT: no acute distress, cooperative, well-developed, well-nourished Head exam: PRESENT: atraumatic, normocephalic Ear exam: PRESENT: normal external ear exam. ABSENT: bleeding, drainage Respiratory exam: PRESENT: rhonchi - On the right. Resolved on the left., symmetrical, unlabored. ABSENT: prolonged expiratory phas, rales, tachypnea, wheezes Cardiovascular exam: PRESENT: RRR, +S1, +S2 GI/Abdominal exam: PRESENT: normal bowel sounds, soft. ABSENT: distended, tenderness Rectal exam: PRESENT: deferred Extremities exam: ABSENT: joint swelling, pedal edema Musculoskeletal exam: PRESENT: ambulatory, full ROM, normal inspection. ABSENT: deformity Neurological exam: PRESENT: alert, awake, oriented to person, oriented to place, oriented to time, oriented to situation, CN II-XII grossly intact Psychiatric exam: PRESENT: appropriate affect. ABSENT: agitated, anxious Results Laboratory Results: 07/27/19 05:37 12/28/19 05:37 07/24/19 09:45 Troponin I < 0.012 NT-Pro-B Natriuret Pep 257 Impressions: Chest X-Ray 07/27/19 09:00 IMPRESSION: Stable chest. Includes unchanged right upper lobe pneumonia. Assessment and Plan - Diagnosis (1) Bilateral pneumonia Qualifiers: Pneumonia type: due to unspecified organism Lung location: unspecified part of lung Qualified Code(s): J18.9 - Pneumonia, unspecified organism Is this a current diagnosis for this admission?: Yes Plan: 07/24/2019-patient has bilateral infiltrates in the right upper lobe and left lower lobe. He has a cough productive of brown sputum with red specks. With his underlying COPD pneumococcus could certainly be present. Other atypical bacteria are possible. Since he has a productive cough I did order a sputum culture to try and isolate the organism. He will be placed on levofloxacin (penicillin allergy) as well as guaifenesin products. 07/25/2019-unfortunately despite the order, no sputum specimen was submitted for culture. At this point, now that the patient has received greater than 24 hours of antibiotic therapy, sputum culture would not be accurate. 07/26/2019-the patient appears to be responding to the antibiotic therapy. We will continue the levofloxacin. This should provide adequate coverage for bacteria associated with community-acquired pneumonia in a patient with underlying COPD. The patient is still coughing up sputum with dark black discoloration consistent with metabolized blood cells. No bright red blood observed. 07/27/2019-still with episodes of black mucus. Chest physiotherapy should help. Continue antibiotics. 07/28/2019-still productive cough black mucus. Currently on room air. Continue antibiotics. (2) Acute and chronic respiratory failure with hypoxia Is this a current diagnosis for this admission?: Yes Plan: 07/24/2019-the patient was hypoxic in the field and EMS applied supplemental oxygen. We will continue his oxygen supplementation with a goal of weaning him back to room air. After some intervention the patient was placed on room air for short time and an ABG was obtained. The patient had decreased PO2 and saturation of 91% at complete rest. Oxygen saturation has been fluctuating. We will supplement his oxygen with a goal of keeping his saturation between 90 and 94%. 07/25/2019-continue oxygen supplementation as required. Maintain saturation between 90 and 94%. Taper oxygen as tolerated. Continue current medication regimen. 07/26/2019-continue treatment of pneumonia and aggressive nebulizer therapy. The patient is now down to 1 L nasal cannula. The goal is to taper the patient to no supplemental oxygen. 07/27/2019-continue inhaler regimen. Continue to wean from oxygen. 07/28/2019-back to room air for the most part. Occasional oxygen today. (3) COPD exacerbation Is this a current diagnosis for this admission?: Yes Plan: 07/24/2019-exacerbation of COPD secondary to pneumonia. Duo nebs every 6 hours with albuterol available every 3 hours as needed. Budesonide every 12 hours. He does have a percussion vest at home and I have ordered chest physiotherapy every 6 hours with respiratory therapy. No systemic steroids yet. 07/25/2019-continue inhaler regimen. Consider adding budesonide. Continue chest physiotherapy. 07/26/2019-continue inhalers as noted above. Continue chest percussion physiotherapy. I have added budesonide. Consider Mucomyst if there is concern for inspissated secretions. 07/27/2019-secondary to pneumonia. Continue current treatment plan. 07/28/2019-continue current regimen. Likely for discharge tomorrow. (4) Gastroesophageal reflux Qualifiers: Esophagitis presence: without esophagitis Qualified Code(s): K21.9 - Gastro-esophageal reflux disease without esophagitis Is this a current diagnosis for this admission?: Yes Plan: 07/24/2019-the patient is on omeprazole at home. I will utilize Protonix 20 mg daily while hospitalized. 07/25/2019-continue Protonix 07/26/2019-continue current management 07/27/2019-as above (5) Hypertension Qualifiers: Hypertension type: essential hypertension Qualified Code(s): I10 - Essential (primary) hypertension Is this a current diagnosis for this admission?: Yes Plan: 07/24/2019-losartan is listed as 1 of his medications. I have ordered losartan 50 mg daily. We will monitor his blood pressure and I will confirm dosing when his medications are reconciled by pharmacy. 07/25/2019-continue current regimen. 07/26/2019-blood pressures are reasonably controlled on current regimen. He does have occasional spikes. This could be related to his musculoskeletal discomfort from coughing. 07/27/2019-consider adding low-dose hydrochlorothiazide. Blood pressure still fluctuates. 07/28/2019-will add low-dose hydrochlorothiazide 12.5 mg daily. Pressures appear to be stable. (6) Hyperlipidemia Qualifiers: Hyperlipidemia type: unspecified Qualified Code(s): E78.5 - Hyperlipidemia, unspecified Is this a current diagnosis for this admission?: Yes Plan: 07/24/2019-he was recently changed from simvastatin to Crestor. I will substitute atorvastatin during his hospitalization. 07/25/2019-continue atorvastatin (7) Chronic back pain Qualifiers: Back pain location: back pain in unspecified location Back pain laterality: midline Qualified Code(s): M54.9 - Dorsalgia, unspecified; G89.29 - Other chronic pain Is this a current diagnosis for this admission?: Yes Plan: 07/24/2019-the patient sees Dr. Saini at the pain management clinic. He has received multiple injections. I will continue his Mobic at this time. We will try and avoid narcotic analgesics. 07/25/2019-continue anti-inflammatory medication 07/26/2019-he is currently on meloxicam 7.5 mg daily. I will add a trial of as needed Toradol 30 mg IV every 6 hours as needed. We will monitor vital signs closely. If we perceive an adverse effect on his blood pressure or cardiac status I will discontinue the medication. If it is effective then I will discontinue the Mobic and utilize the Toradol alone. 07/27/2019-somewhat effective. Blood pressure may be trending up. May need to discontinue. 07/28/2019-neck pain is stable however the subcostal rib pain from coughing is improved. We will need to discontinue Toradol at discharge. (8) Benign prostatic hyperplasia with nocturia Is this a current diagnosis for this admission?: Yes Plan: 07/24/2019-the patient reports that he was having 4-5 episodes of nocturia. He states that his doctor put him on a medicine and this improved. I have started tamsulosin and will continue this unless a different medication is indicated with the pharmacy medication reconciliation. 07/25/2019-continue Flomax 07/26/2019-continues Flomax 0.4 mg at bedtime. He still complains of some urgency and it is difficult to get to the bathroom without leaking some urine. Consider increasing the Flomax to 0.8 mg. 07/27/2019-continue 0.4 mg Flomax at this time. (9) Cold intolerance Is this a current diagnosis for this admission?: Yes Plan: 07/25/2019-the patient's reports that the patient complains of always feeling cold. This includes occasional episodes of chills. I will check a TSH level as an initial investigation. 07/26/2019-as noted above there is a question of cold intolerance. I did check a TSH level. This was normal. That ongoing sense of feeling cold may more likely be related to his chronic illness disease. 07/27/2019- reports this is a symptom however the patient's thyroid function is normal. Likely symptomatic but not pathologic (10) Physical deconditioning Is this a current diagnosis for this admission?: Yes Plan: 07/26/2019-the patient's commented as did the patient on how weak he feels. I explained that with a significant infection this is not uncommon. Because of his underlying comorbidities I will ask physical therapy to assess the patient. We will assess his gait instability. If physical therapy agrees and the patient may be able to walk with his , possibly utilizing a walker, during the day. 07/27/2019-we will have physical therapy assess. Likely just transient from current illness. 07/28/2019-physical therapy to see the patient. I believe his weakness is transient as noted above (11) Cough with hemoptysis Is this a current diagnosis for this admission?: Yes Plan: 07/26/2019-as noted on admission the patient was seeing some red flecks in his sputum. Now he is coughing up blackish sputum. I explained to the patient and his that this is likely old blood mixed with mucus. There is no evidence of bright red blood. He did cough up about 2 teaspoons worth of mucus during the encounter. It is definitely black in color and most likely old blood. Hemoglobin is stable. 07/27/2019-still with black mucus but no bright red blood. 07/28/2019-still with dark-colored mucus. Continue chest percussion therapy, on Mucinex, nebulizers and antibiotics. - Plan Summary Summary: 07/24/2019-the patient will be admitted to the hospitalist service. Aggressive nebulizer treatments, oxygen supplementation and antibiotic therapy will be the mainstay of the treatment plan. We will continue to treat his comorbidities as well. - Time Time Spent with patient: 15-24 minutes Anticipated discharge: Home Within: within 24 hours
[2019-07-28] MEDS: TAMSULOSIN HCL 0.4 MG CAP.SR.24H PO SCH (17:36)
[2019-07-28] MEDS: ATORVASTATIN CALCIUM 40 MG TABLET PO SCH (21:13)
[2019-07-28] MEDS: MONTELUKAST SODIUM 10 MG TABLET PO SCH (21:13)
[2019-07-29] MEDS: IPRATROPIUM/ALBUTEROL 0.5-2.5 MG/3 ML AMPUL NEB SCH ×2 (02:10→08:59)
[2019-07-29] MEDS: PANTOPRAZOLE SODIUM 20 MG TABLET.DR PO SCH (05:39)
[2019-07-29] MEDS ORDERED: HYDROCHLOROTHIAZIDE 12.5 MG TABLET PO SCH (08:00)
[2019-07-29 08:44] VITALS: BP 140/74
[2019-07-29] MEDS: BUDESONIDE NEB 0.5 MG/2 ML AMPUL NEB SCH (08:59)
--- NOTE | 2019-07-29 10:13 | PDOC DISCHARGE SUMMARY ---
Impression - Admit/DC Date/PCP Admission Date/Primary Care Provider: 07/24/19 16:49 Discharge Date: 07/29/19 - Discharge Diagnosis (1) Acute and chronic respiratory failure with hypoxia Is this a current diagnosis for this admission?: Yes (2) Benign prostatic hyperplasia with nocturia Is this a current diagnosis for this admission?: Yes (3) Bilateral pneumonia Is this a current diagnosis for this admission?: Yes (4) COPD exacerbation Is this a current diagnosis for this admission?: Yes (5) Chronic back pain Is this a current diagnosis for this admission?: Yes (6) Cold intolerance Is this a current diagnosis for this admission?: Yes (7) Cough with hemoptysis Is this a current diagnosis for this admission?: Yes (8) Gastroesophageal reflux Is this a current diagnosis for this admission?: Yes (9) Hyperlipidemia Is this a current diagnosis for this admission?: Yes (10) Hypertension Is this a current diagnosis for this admission?: Yes (11) Physical deconditioning Is this a current diagnosis for this admission?: Yes - Additional Information Resuscitation Status: Full Code Discharge Diet: Cardiac Discharge Activity: Activity As Tolerated, Balance Activity w/Rest, Slowly Increase Activity Prescriptions: Losartan Potassium [Cozaar 50 mg Tablet] 50 mg PO DAILY #30 tablet Ipratropium/Albuterol Sulfate [Duoneb 3 ml Ampul] 3 ml NEB RTQ6HP PRN #60 vial.neb PRN Reason: For Wheezing Hydrochlorothiazide [Hydrodiuril 12.5 mg Tablet] 12.5 mg PO QAM #30 tablet Levofloxacin [Levaquin 750 mg Tablet] 750 mg PO NOON #3 tablet Guaifenesin [Mucinex Sr 600 mg Tablet.sa] 600 mg PO Q12 #14 tablet.sa Acetylcysteine [Mucomist 10% Neb 400 mg/4 ml Vial] 400 mg IH BID #14 vial.neb Montelukast Sodium [Singulair 10 mg Tablet] 10 mg PO QHS #30 tablet Home Medications: Aspirin [Ecotrin 81 mg EC Tablet] 81 mg PO DAILY 07/25/19 Fluticasone/Salmeterol [Advair 500-50 Diskus 14 Dose/Diskus] 1 inh IH Q12H 07/25/19 Tamsulosin HCl [Flomax] 0.4 mg PO QHS 07/25/19 Acetaminophen [Tylenol 325 mg Tablet] 650 mg PO Q4HP PRN tablet 07/29/19 Acetylcysteine [Mucomist 10% Neb 400 mg/4 ml Vial] 400 mg IH BID #14 vial.neb 07/29/19 Docusate Sodium [Colace 100 mg Capsule] 100 mg PO BID capsule 07/29/19 Guaifenesin [Mucinex Sr 600 mg Tablet.sa] 600 mg PO Q12 #14 tablet.sa 07/29/19 Guaifenesin/D-Methorphan Hb [Robitussin-Dm Syrup 10 ml Udcup] 10 ml PO QIDP PRN syrup 07/29/19 Hydrochlorothiazide [Hydrodiuril 12.5 mg Tablet] 12.5 mg PO QAM #30 tablet Ipratropium/Albuterol Sulfate [Duoneb 3 ml Ampul] 3 ml NEB RTQ6HP PRN #60 vial.neb 07/29/19 Levofloxacin [Levaquin 750 mg Tablet] 750 mg PO NOON #3 tablet 07/29/19 Loratadine [Claritin 10 mg Tablet] 10 mg PO DAILY tablet 07/29/19 Losartan Potassium [Cozaar 50 mg Tablet] 50 mg PO DAILY #30 tablet 07/29/19 Montelukast Sodium [Singulair 10 mg Tablet] 10 mg PO QHS #30 tablet 07/29/19 History of Present Illiness History of Present Illness: Per H&P by Dr. George: GABE CHILD is a 79 year old male with a history of hypertension, hyperlipidemia, chronic back pain and COPD. He states that at 5:00 this morning he began coughing. He denied fever or chills. He had 4-5 productive episodes with brown sputum and occasional red specks. For ap proximately 3 months now he has been wearing a percussion vest for his COPD. He is not on oxygen at home. He did complete a cardiopulmonary rehab program earlier in the fall. He did call EMS. They found him to be hypoxic requiring oxygen supplementation. Chest x-ray reveals infiltrates bilaterally. The patient was given antibiotics and nebulizer treatment and referred to the hospital service for admission Hospital Course Hospital Course: The patient was admitted to the medical floor for acute on chronic respiratory failure secondary to bilateral pneumonia and COPD exacerbation. He was empirically placed on IV Levaquin. Unfortunately, sputum cultures were not obtained, however, he has responded well to empiric antibiotics. Blood cultures were negative at 4 days (day of discharge). His productive cough has decreased significantly. He was further supported with supplemental oxygen, scheduled and as needed nebulizer treatments, chest physiotherapy, incentive spirometer and flutter valve. The patient has now been afebrile greater than 48 hours, clinically improved, and maintaining oxygen saturations while ambulatory on room air. He reports that he is feeling well enough to go home today; only complaint is continued chest wall pain with deep cough/inspiration and chest physiotherapy, as well as increased sputum production from his baseline. The patient's other chronic medical conditions have remained stable. The patient is discharged home in stable condition. He is advised to follow-up with his primary care provider within 1 week. 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 He is instructed to complete his course of antibiotic therapy, one week of twice daily Mucomyst nebulizer treatments, continue his as needed nebulizer treatments, and to otherwise resume his home medication regiment. He is instructed to drink plenty of water. He is encouraged to return to the emergency department as needed for concerning symptoms. Physical Exam Vital Signs: Temp Pulse Resp BP Pulse Ox 99.5 F 72 16 140/74 H 92 07/29/19 08:00 07/29/19 08:55 07/29/19 08:55 07/29/19 08:00 07/29/19 08:55 Pulse Oximeter Continuous Start: 07/24/19 16:37 Freq: RTQ4 Status: Complete Protocol: Document 07/28/19 15:15 KHALIDA (Rec: 07/28/19 15:15 [email or web address] [id number]) Pulse Oximetry Assessment Oxygen Saturation (92-100) 97 Oxygen Delivery Method Room Air Fraction of Inspired Oxygen (FIO2) 21 Equipment Usage Equipment in Use Continuous SpO2 Machine # 10 Intake & Output 07/28/19 07/29/19 07/30/19 06:59 06:59 06:59 Intake Total 2170 1130 Output Total 1250 Balance 2170 -120 Weight 78.6 kg 78.2 kg General appearance: PRESENT: no acute distress, cooperative, well-developed, well-nourished Head exam: PRESENT: atraumatic, normocephalic Eye exam: PRESENT: conjunctiva pink, EOMI, PERRLA. ABSENT: scleral icterus Ear exam: PRESENT: normal external ear exam Mouth exam: PRESENT: moist, tongue midline Neck exam: ABSENT: carotid bruit, JVD, lymphadenopathy, thyromegaly Respiratory exam: PRESENT: rhonchi, symmetrical, unlabored, wheezes - RLL expiratory wheeze; imrpoved following cough, other - Room air. ABSENT: rales Cardiovascular exam: PRESENT: RRR. ABSENT: diastolic murmur, rubs, systolic murmur Pulses: PRESENT: normal dorsalis pedis pul Vascular exam: PRESENT: normal capillary refill GI/Abdominal exam: PRESENT: normal bowel sounds, soft. ABSENT: distended, guarding, mass, organolmegaly, rebound, tenderness Rectal exam: PRESENT: deferred Extremities exam: PRESENT: full ROM. ABSENT: calf tenderness, clubbing, pedal edema Musculoskeletal exam: PRESENT: ambulatory Neurological exam: PRESENT: alert, awake, oriented to person, oriented to place, oriented to time, oriented to situation, CN II-XII grossly intact. ABSENT: motor sensory deficit Psychiatric exam: PRESENT: appropriate affect, normal mood. ABSENT: homicidal ideation, suicidal ideation Skin exam: PRESENT: dry, intact, rash - heat rash to back, warm. ABSENT: cyanosis Results Laboratory Results: WBC 10.3 10^3/uL (4.0-10.5) 07/27/19 05:37 RBC 3.82 10^6/uL (4.35-5.55) L 07/27/19 05:37 Hgb 11.8 g/dL (13.5-17.0) L 07/27/19 05:37 Hct 34.8 % (37.9-51.0) L 07/27/19 05:37 MCV 91 fl (80-97) 07/27/19 05:37 MCH 31.0 pg (27.0-33.4) 07/27/19 05:37 MCHC 34.0 g/dL (32.0-36.0) 07/27/19 05:37 RDW 14.4 % (11.5-14.0) H 07/27/19 05:37 Plt Count 147 10^3/uL (150-450) L 07/27/19 05:37 Lymph % (Auto) 8.5 % (13-45) L 07/26/19 06:40 [place] % (Auto) 7.7 % (3-13) 07/26/19 06:40 Eos % (Auto) 0.2 % (0-6) 07/26/19 06:40 Baso % (Auto) 0.3 % (0-2) 07/26/19 06:40 Absolute Neuts (auto) 8.7 10^3/uL (1.7-8.2) H 07/26/19 06:40 Absolute Lymphs (auto) 0.9 10^3/uL (0.5-4.7) 07/26/19 06:40 Absolute Monos (auto) 0.8 10^3/uL (0.1-1.4) 07/26/19 06:40 Absolute Eos (auto) 0.0 10^3/uL (0.0-0.6) 07/26/19 06:40 Absolute Basos (auto) 0.0 10^3/uL (0.0-0.2) 07/26/19 06:40 Seg Neutrophils % 83.3 % (42-78) H 07/26/19 06:40 PT 13.6 SEC (11.4-15.4) 07/24/19 09:45 INR 1.04 07/24/19 09:45 Carbonic Acid 1.04 mmol/L (1.05-1.35) L 07/24/19 12:50 HCO3/H2CO3 Ratio 23:1 07/24/19 12:50 ABG pH 7.46 (7.35-7.45) H 07/24/19 12:50 ABG pCO2 34.6 mmHg (35-45) L 07/24/19 12:50 ABG pO2 58.4 mmHg (80-100) L 07/24/19 12:50 ABG HCO3 24.0 mmol/L (20-24) 07/24/19 12:50 ABG Total CO2 25.1 mmol/L (23-27) 07/24/19 12:50 ABG O2 Saturation 91.9 % (94-98) L 07/24/19 12:50 ABG Base Excess 0.7 mmol/L 07/24/19 12:50 FiO2 ROOM AIR 07/24/19 12:50 Sodium 140.1 mmol/L (137-145) 07/27/19 05:37 Potassium 3.7 mmol/L (3.6-5.0) 07/27/19 05:37 Chloride 104 mmol/L (98-107) 07/27/19 05:37 Carbon Dioxide 25 mmol/L (22-30) 07/27/19 05:37 Anion Gap 11 (5-19) 07/27/19 05:37 BUN 9 mg/dL (7-20) 07/27/19 05:37 Creatinine 0.89 mg/dL (0.52-1.25) 07/27/19 05:37 Est GFR ( Amer) > 60 (>60) 07/27/19 05:37 Est GFR (MDRD) Non-Af > 60 (>60) 07/27/19 05:37 Glucose 82 mg/dL (75-110) 07/27/19 05:37 Lactic Acid 1.8 mmol/L (0.7-2.1) 07/24/19 09:45 Calcium 8.4 mg/dL (8.4-10.2) 07/27/19 05:37 Total Bilirubin 1.1 mg/dL (0.2-1.3) 07/24/19 09:45 Direct Bilirubin 0.2 mg/dL (0.0-0.4) 07/24/19 09:45 Neonat Total Bilirubin Not Reportable 07/24/19 09:45 Neonat Direct Bilirubin Not Reportable 07/24/19 09:45 Neonat Indirect Bili Not Reportable 07/24/19 09:45 AST 20 U/L (17-59) 07/24/19 09:45 ALT 13 U/L (<50) 07/24/19 09:45 Alkaline Phosphatase 81 U/L (38-126) 07/24/19 09:45 Troponin I < 0.012 ng/mL 07/24/19 09:45 NT-Pro-B Natriuret Pep 257 pg/mL (<450) 07/24/19 09:45 Total Protein 7.0 g/dL (6.3-8.2) 07/24/19 09:45 Albumin 3.7 g/dL (3.5-5.0) 07/24/19 09:45 TSH 1.79 uIU/mL (0.47-4.68) 07/26/19 06:40 07/24/19 09:45 Troponin I < 0.012 NT-Pro-B Natriuret Pep 257 Impressions: Chest X-Ray 07/24/19 11:41 IMPRESSION: 1. Heterogeneous opacity of the lateral right upper lobe and retrocardiac left lung base, concerning for infection. Small pleural effusions. Recommend follow-up radiographs in 6 to 8 weeks to ensure complete resolution. 2. Cardiomegaly. Chest X-Ray 07/27/19 09:00 IMPRESSION: Stable chest. Includes unchanged right upper lobe pneumonia. Plan Plan of Treatment: The patient is discharged to home in stable condition. He is advised to follow-up with his primary care provider within 1 week. 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 He is instructed to complete his full course of antibiotic therapy, and continue aggressive pulmonary toilet with incentive spirometer, flutter valve, home chest physiotherapy vest, twice daily Mucomyst nebulizer treatments, and DuoNeb treatments as needed. He is advised to drink plenty of water, rest, slowly increase activity as tolerated. He is instructed to return to the emergency department as needed for concerning symptoms. Time Spent: Greater than 30 Minutes Stroke Is this a Stroke Patient?: No Acute Heart Failure - Is this a Heart Failure Patient?: No
[2019-07-29] MEDS: GUAIFENESIN 600 MG TABLET.SA PO SCH (11:25)
[2019-07-29] MEDS: ASPIRIN 81 MG TABLET, ENT COATED PO SCH (11:25)
[2019-07-29] MEDS: LOSARTAN POTASSIUM 50 MG TABLET PO SCH (11:25)
[2019-07-29] MEDS: MELOXICAM 7.5 MG TABLET PO SCH (11:25)
[2019-07-29] MEDS: ENOXAPARIN SODIUM INJ 40 MG/0.4 ML DISP.SYRIN SUBCUT SCH (11:46)
[2019-07-29] MEDS: DOCUSATE SODIUM 100 MG CAPSULE PO SCH (11:47)
[2019-07-29] MEDS ORDERED: LEVOFLOXACIN 750 MG TABLET PO SCH (12:00)
[2019-07-29] MEDS: LORATADINE 10 MG TABLET PO SCH (12:19)
== END 2019-07-29 12:00 | disposition home or self-care (01) | DRG 189 ==
LOC: ER 09:23 → EH 16:49 → OBSVTOIN 16:49 → 5 18:25
PROVIDERS: ADMIT Hospitalist; ATTEND Hospitalist
DX: J96.21 Acute and chronic respiratory failure with hypoxia (principal); J18.9 Pneumonia, unspecified organism; J44.1 Chronic obstructive pulmonary disease with (acute) exacerbation; R04.2 Hemoptysis; E78.00 Pure hypercholesterolemia, unspecified; I10 Essential (primary) hypertension; K21.9 Gastro-esophageal reflux disease without esophagitis; N40.1 Benign prostatic hyperplasia with lower urinary tract symptoms; R35.1 Nocturia; M54.9 Dorsalgia, unspecified; Z79.82 Long term (current) use of aspirin; Z79.51 Long term (current) use of inhaled steroids; Z79.899 Other long term (current) drug therapy
CPT/HCPCS: 36415; 71046; 80048; 80053; 82803; 83605; 83880; 84443; 84484; 85025; 85027; 85610; 87040; 93005; 93010; 94640; 94667; 94668; 94762; 94799; 96361; 96365; 96366; 99285; J1650; J1885; J1956; J3490; J7030; J7620